=== PATIENT | female | born 1960 | race Caucasian/White ===

== ENCOUNTER 2016-05-26 14:05 | Outpatient (CLI) | payer OTHER ==
--- NOTE | 2016-05-27 06:15 | Diagnostic Imaging Report ---
Report Submission Date: May 26, 2016 11:47:30 PM LAWYER PROBATE Patient ~ Study Name: IVY TYSON ~ Date: May 26, 2016 2:44:55 PM LAWYER PROBATE ~ Modality Type: CR Gender: F ~ Description: SPINE : 56 ~ Institution: [facility] Physician: SILVIO CARRILLO ~ ~ ~ ~ Lumbar spine - three views Clinical history: ~Low back pain for 15 years. ~Difficulty moving the leg for about 3 weeks. ~Right foot drop. Findings: ~Examination of the lumbar spine in AP, lateral and lateral coned- down views demonstrates the vertebrae to be anatomically aligned. ~Disc spaces are narrowed at L3-4, L4-5 and L5-S1 with small osteophytes consistent with degenerative disc disease. ~The facet joints are narrowed in the lower lumbar vertebrae. ~The pedicles are intact and the paravertebral soft tissues are within normal limits. ~Vascular calcification is present in the abdominal aorta. Impression: 1. ~Spondylosis. 2. ~No fracture. ~ Electronically signed on May 26, 2016 11:47:30 PM LAWYER PROBATE by: Booker SOARES
== END 2016-05-26 14:06 ==
LOC: LAB 14:05
PROVIDERS: ATTEND Family Medicine
DX: M54.5 Low back pain (principal); E11.9 Type 2 diabetes mellitus without complications
CPT/HCPCS: 36415; 72100; 83036

== ENCOUNTER 2016-06-19 08:50 | Outpatient (CLI) | payer OTHER ==
--- NOTE | 2016-06-19 11:27 | Diagnostic Imaging Report ---
LORENA ANGUIANO~ [facility] [address] [id number] ~ ~ ~ ~ Report Submission Date: Jun 19, 2016 10:03:32 AM RESOURCE TEACHER Patient ~ Study Name: IVY TYSON ~ Date: Jun 19, 2016 9:09:32 AM RESOURCE TEACHER ~ Modality Type: MR Gender: F ~ Description: MRI L SPINE W/O CONTRAST : 56 ~ Institution: [facility] Physician: LORENA ANGUIANO ~ ~ ~ ~ Magnetic resonance imaging of the lumbar spine without contrast History: Low back pain and right leg pain with right foot drop for 3 weeks. History of cervical cancer Findings: Routine sagittal and axial images of the lumbar spine are obtained without contrast. An 8 x 13 mm left periaortic lymph node is observed anterior to the L2 vertebral body. Bone marrow signal is normal. The conus medullaris terminates at the L1 level. L1/L2: No significant abnormality. L2/L3: Mild diffuse disc bulge, congenital spinal canal narrowing, and mild central canal stenosis. L3/4: Minimal disc space narrowing, moderate diffuse disc bulging, congenital spinal canal narrowing, and moderate central canal stenosis. L4/L5: Advanced right and mild left facet arthropathy, ligamentum flavum redundancy, mild diffuse disc bulging, congenital spinal canal narrowing, minimal grade I degenerative spondylolisthesis, and severe central canal stenosis. L5/S1: Moderate left facet arthropathy, mild diffuse disc bulging left lateral foraminal disc protrusion, and left foraminal stenosis. Impression: 1. Enlarged left periaortic lymph node, indeterminate for metastatic disease given the clinical history of cervical cancer. Consider computed tomography of the abdomen and pelvis with contrast for further evaluation. 2. Spondylosis and congenital spinal canal narrowing result in central canal stenosis at L2/L3, L3/L4, and L4/L5. 3. L5/S1 spondylosis with left foraminal stenosis. ~ Electronically signed on Jun 19, 2016 10:03:32 AM RESOURCE TEACHER by: Nathaniel SOARES
== END 2016-06-19 08:55 | disposition home or self-care (01) ==
LOC: RAD 08:50
PROVIDERS: ATTEND Family Medicine
DX: M47.896 Other spondylosis, lumbar region (principal); M21.371 Foot drop, right foot
CPT/HCPCS: 72148

== ENCOUNTER 2016-06-21 13:11 | Outpatient (CLI) | payer OTHER ==
[2016-06-21 13:50] LABS: eGFR (African) > 60; eGFR (Non-African) > 60
== END 2016-06-21 13:12 ==
LOC: LAB 13:11
PROVIDERS: ATTEND Family Medicine
DX: E11.9 Type 2 diabetes mellitus without complications (principal)
CPT/HCPCS: 36415; 80048

== ENCOUNTER 2016-06-24 08:42 | Outpatient (CLI) | payer OTHER ==
--- NOTE | 2016-06-25 07:00 | Diagnostic Imaging Report ---
[facility] [address] [facility].[address] [id number] ~ ~ ~ ~ Report Submission Date: Jun 24, 2016 3:31:14 PM STRAP STITCHER Patient ~ Study Name: IVY TYSON ~ Date: Jun 24, 2016 9:23:08 AM STRAP STITCHER ~ Modality Type: CT\SR Gender: F ~ Description: CT ABD & PELVIS W & W/ : 56 ~ Institution: [facility] Physician LORENA ANGUIANO ~ ~ ~ Computed tomography of the abdomen and pelvis without and with contrast HISTORY: ~ Enlarged left periaortic lymph node on lumbar spine MRI dated 06/19/2016. ~ History of cervical cancer. ~ FINDINGS: ~ Transverse abdomen and pelvis sections are obtained without and with 95 mL intravenous Omnipaque 350 and are compared to the recent lumbar MRI. ~ Bilateral breast implants, marked hepatic steatosis, normal caliber gallbladder , atherosclerotic disease, and multilevel lumbar spondylosis are observed. ~The spleen, adrenals, pancreas, kidneys, mesenteric structures, and bowel loops are unremarkable. ~The appendix is absent. ~There is no evidence of periaortic lymphadenopathy. ~The nodular lesion observed by MRI likely represented a distended lumbar vein which has diminished in size on the current study. ~ Pelvic sections reveal hysterectomy and unremarkable urinary bladder. ~Pelvic bowel loops are within normal limits. ~ IMPRESSION: ~ No evidence of periaortic lymphadenopathy. ~The nodular lesion observed on the recent MRI presumably represented a now decompressed venous varix. ~ Atherosclerosis, hepatic steatosis, lumbar spondylosis, hysterectomy, and appendectomy. ~ DLP [id number] ~ Electronically signed on Jun 24, 2016 3:31:14 PM STRAP STITCHER by: Nathaniel SOARES
== END 2016-06-24 08:43 ==
LOC: RAD 08:42
PROVIDERS: ATTEND Family Medicine
DX: R59.0 Localized enlarged lymph nodes (principal)
CPT/HCPCS: 74178; Q9966

== ENCOUNTER 2016-08-18 15:22 | Outpatient (CLI) | payer OTHER ==
[2016-08-18 15:50] LABS: BASOPHILS % 0.3 (0.0-1.5); EOSINOPHILS % 1.5 % (0.0-6.8); MEAN CORPUSCULAR HEMOGLOBIN 32.3 pg (28.0-34.0); MEAN CORPUSCULAR VOLUME 92.2 fl (80.0-100.0); MONOCYTES % 5.9 % (0.0-11.0)
[2016-08-18 16:24] LABS: eGFR (African) > 60; eGFR (Non-African) > 60
== END 2016-08-18 15:23 ==
LOC: LAB 15:22
PROVIDERS: ATTEND Physician Assistant
DX: L40.0 Psoriasis vulgaris (principal)
CPT/HCPCS: 36415; 80053; 85025; 86480; 86703; 86803; 87340

== ENCOUNTER 2016-10-27 13:40 | Outpatient (CLI) | payer OTHER ==
[2016-10-27 13:55] LABS: BASOPHILS % 0.6 (0.0-1.5); EOSINOPHILS % 0.5 % (0.0-6.8); MEAN CORPUSCULAR HEMOGLOBIN 33.1 pg (28.0-34.0); MEAN CORPUSCULAR VOLUME 92.4 fl (80.0-100.0); MONOCYTES % 5.4 % (0.0-11.0); NEUTROPHILS # 6.8 # k/uL (1.4-7.7)
[2016-10-27 14:18] LABS: eGFR (African) > 60; eGFR (Non-African) > 60
== END 2016-10-27 13:50 ==
LOC: LAB 13:40
PROVIDERS: ATTEND Physician Assistant
DX: L40.0 Psoriasis vulgaris (principal); Z79.899 Other long term (current) drug therapy
CPT/HCPCS: 36415; 80053; 85025

== ENCOUNTER 2017-12-25 10:59 | Outpatient (CLI) | payer OTHER ==
[2017-12-25 12:09] LABS: eGFR (African) > 60; eGFR (Non-African) > 60
== END 2017-12-25 11:00 ==
LOC: LAB 10:59
PROVIDERS: ATTEND Family Medicine
DX: E11.9 Type 2 diabetes mellitus without complications (principal)
CPT/HCPCS: 36415; 80053; 80061; 83036

== ENCOUNTER 2018-05-30 15:13 | Outpatient (CLI) | payer OTHER | END 2018-05-30 15:15 | LOC: LAB 15:13 | PROVIDERS: ATTEND Family Medicine | DX: E11.9 Type 2 diabetes mellitus without complications (principal) | CPT/HCPCS: 36415; 83036 ==

== ENCOUNTER 2019-03-26 15:39 | Outpatient (CLI) | payer OTHER | END 2019-03-26 16:00 | LOC: LAB 15:39 | PROVIDERS: ATTEND Family Medicine | DX: E11.9 Type 2 diabetes mellitus without complications (principal) | CPT/HCPCS: 36415; 83036 ==